=== PATIENT | male | born 1970 | race Caucasian/White ===

== ENCOUNTER 2023-07-21 16:06 | Emergency (ER) | payer MEDICAID, SELFPAY ==
[2023-07-21 16:09] VITALS: BP 140/90; PULSE 80; RESP 20; TEMP 37.1; O2SAT 99
--- NOTE | 2023-07-21 16:24 | ED.SKABFB ---
HPI - Skin/Abscess/Foreign Bdy General Chief complaint: Unspecified Stated complaint: leg swelling Source: patient Mode of arrival: ambulatory Limitations: no limitations History of Present Illness HPI narrative: 52 history bipolar, PTSD right lower extremity DVT with PE, factor 5 Leiden heterozygous deficiency, left lower leg and foot swelling / cellulitis for which he received 3 courses of antibiotics. He had a venous Doppler of the left lower extremity which was negative DVT. He presents to the ER for -- swelling of left leg and the foot. no fever or chills. The left leg does not feel warm. MD complaint: other ( Left lower leg and foot swelling) Onset (ago): month(s) ( for 1 month) Tetanus up to date: yes Location: LLE Quality: aching Pain Consistency: constant Relieving factors: none Exacerbating factors: none Context: none Associated symptoms: denies other symptoms Treatments prior to arrival: none Related Data Home Medications Medication Instructions Recorded Confirmed bupropion HCl 150 mg tablet,12 hr 150 mg PO DAILY 07/21/23 07/21/23 sustained-release cephalexin 500 mg capsule 500 mg PO TID 07/21/23 07/21/23 clonazepam 1 mg tablet 1 mg PO BID PRN Anxiety 07/21/23 07/21/23 lamotrigine 25 mg tablet 25 mg PO DAILY 07/21/23 07/21/23 olanzapine 10 mg tablet 10 mg PO DAILY 07/21/23 07/21/23 trazodone 100 mg tablet 100 mg PO HS 07/21/23 07/21/23 Review of Systems Review of Systems: All systems reviewed & are unremarkable except as noted in HPI and below Constitutional: Constitutional: Reports as per HPI and Reports no additional constitutional complaints Eyes: Eyes: Reports as per HPI and Reports no additional eye complaints ENT: Reports system reviewed and no additional complaints, except as documented and Reports as per HPI Cardiovascular: Cardiovascular: Reports as per HPI and Reports no additional cardiovascular complaints Respiratory: Respiratory: Reports as per HPI and Reports no additional respiratory complaints Gastrointestinal: Gastrointestinal: Reports as per HPI and Reports no additional gastrointestinal complaints Genitourinary: Genitourinary: Reports no additional male genitourinary complaints and Reports as per HPI Musculoskeletal: Musculoskeletal: Reports no additional musculoskeletal complaints and Reports as per HPI Integumentary/Breasts: Skin/Breast: Reports system reviewed and no additional complaints, except as docu and Reports as per HPI Comments: left lower leg and foot swelling with minimal erythema. Neurologic: Reports system reviewed and no additional complaints, except as documented and Reports as per HPI Psychiatric: Psychiatric: Reports no additional psychiatric complaints and Reports as per HPI Endocrine: Endocrine: Reports no additional endocrine complaints and Reports as per HPI Hematologic/Lymphatic: Hematologic/Lymphatic: Reports no additional hematologic/lymphatic complaints and Reports as per HPI Allergic/Immunologic: Allergic/Immunologic: Reports no additional allergic/immunologic complaints and Reports as per HPI [facility] Past Medical History Medical History (Updated 07/21/23 @ 17:42 by Jay Srivastava MD) Bipolar 1 disorder DVT (deep venous thrombosis) Factor 5 Leiden mutation, heterozygous PE (physical exam), annual PTSD (post-traumatic stress disorder) Exam Narrative: afebrile. Const: General: healthy appearing and no acute distress Nutritional Appearance: well nourished Orientation/consciousness: patient oriented x3 Limitations: no limitations HENMT: Head: normal to inspection Ears: external ears normal Face/Nose/Sinus: Normal external nose present Face and sinus: normal facial exam Mouth: Yes Normal oral and palatal mucosa present Throat: posterior oropharynx normal Eyes: Conjunctivae: conjunctivae normal Pupils: Equal, round and reactive pupils present EOM: EOMs intact bilaterally Direct Ophthalmoscopy: no photophobia Neck:
[2023-07-21 17:09] LABS: Basophils Absolute Auto 0.06 K/mm3 (0.00-0.10); Basophils Percent Auto 0.8 % (0.0-1.0); Eosinophils Absolute Auto 0.51 K/mm3 (0.02-0.50); Eosinophils Percent Auto 6.4 % (1.0-6.0); Hematocrit 44.7 % (40.0-54.0); Hemoglobin 14.8 g/dL (14.0-18.0); Immature Granulocyte Absolute 0.04 K/mm3 (0.00-0.00); Immature Granulocyte Percent A 0.5 % (0.0-0.0); Lymphocytes Percent Auto 22.7 % (18.0-42.0); Mean Corpuscular HGB Conc 33.1 g/dL (32.0-36.0); Mean Corpuscular Hemoglobin 28.8 pg (27.0-31.0); Mean Corpuscular Volume 87.1 fL (78.0-102.0); Mean Platelet Volume 9.6 fl (8.7-11.0); Monocytes Percent Auto 7.6 % (2.0-11.0); Neutrophils Absolute Auto 4.9 K/mm3 (1.7-7.2); Platelet Count Result 252 K/mm3 (150-420); Red Blood Count 5.13 M/mm3 (4.70-6.10); Red Cell Distribution Width 13.8 % (11.6-14.4); White Blood Count 7.9 K/mm3 (4.8-10.8)
[2023-07-21 17:22] LABS: D Dimer 0.21 mg/L (0.19-0.50)
[2023-07-21 17:31] LABS: Alanine Aminotransferase 18 U/L (16-63); Albumin Level 3.9 g/dL (3.4-5.0); Alkaline Phosphatase 70 U/L (46-116); Anion Gap 9 mmol/L (8-16); Aspartate Amino Transferase 18 U/L (15-37); Bilirubin,Total 0.3 mg/dL (0.00-1.00); Blood Urea Nitrogen 12 mg/dL (7-18); Calcium 8.3 mg/dL (8.5-10.1); Carbon Dioxide 27 mmol/L (21-32); Chloride 105 mmol/L (98-108); Estimated CRCL calculation 70 ml/min; Estimated Glomerular Filt Rate > 60; Glucose 107 mg/dL (70-99); NT Pro B Type Natriuretic Pept 13 pg/mL (0-125); Osmolality Calculated 291 mOsm/kg (285-295); Potassium 3.8 mmol/L (3.5-5.1); Sodium 141 mmol/L (136-145); Thyroid Stimulating Hormone 1.25 uIU/mL (0.36-3.74); Total Protein 6.7 g/dL (6.4-8.2)
[2023-07-21 17:53] VITALS: BP 130/88; PULSE 78; RESP 20; TEMP 36.6; O2SAT 98
== END 2023-07-21 17:55 | disposition home or self-care (01) ==
PROVIDERS: Emergency Provider Internal Medicine Critical Care Medicine; PCP Family Medicine
DX: I89.0 Lymphedema, not elsewhere classified (principal); Z86.718 Personal history of other venous thrombosis and embolism; Z79.899 Other long term (current) drug therapy
CPT/HCPCS: 36415; 80053; 83880; 84443; 85025; 85380; 99283

== ENCOUNTER 2023-11-05 09:01 | Outpatient (CLI) | payer OTHER, SELFPAY | END 2023-11-05 09:02 | disposition home or self-care (01) | LOC: CHSAUDIO 09:04 | PROVIDERS: PCP Physician Assistant; Visit Provider Physician Assistant | DX: H93.12 Tinnitus, left ear (principal); H90.3 Sensorineural hearing loss, bilateral | CPT/HCPCS: 92557; 92567 ==

== ENCOUNTER 2024-08-04 06:13 | Emergency (ER) | payer OTHER, SELFPAY ==
[2024-08-04 06:15] VITALS: BP 136/90; PULSE 70; RESP 18; TEMP 35.9; O2SAT 96
[2024-08-04] MEDS: LIDOCAINE HCL 1% LOCAL INJ 10 ML VIAL 5 ML INFILTRATE (06:30)
[2024-08-04] MEDS: TETANUS,DIPHTHERIA,AC PERTUSSIS ADULT 0.5 ML (ADACEL) IM (06:43)
--- NOTE | 2024-08-04 06:43 | ED.GENADULT ---
HPI - General Adult General Chief complaint: Wound/Laceration Stated complaint: wound Time Seen by Provider: 08/04/24 06:16 Source: patient Mode of arrival: ambulatory Limitations: no limitations History of Present Illness HPI narrative: 53-year-old white male tripped in his bedroom and hit his chin on his nightstand just before coming to the emergency department. He had no loss of consciousness. He lacerated his chin and bruised his lip. Says his bottom teeth are little bit loose otherwise he has no other injury. Otherwise he has been eating drinking stooling and voiding fine without fever cough runny nose sore throat problems walking talking seeing or hearing other injuries or swelling lumps or bumps dizziness or lightheadedness or other pain weakness or numbness or paresthesias. Denies any other complaints Related Data Home Medications Medication Instructions Recorded Confirmed clonazepam 1 mg tablet 1 mg PO BID PRN Anxiety 07/21/23 08/04/24 lamotrigine 25 mg tablet 25 mg PO DAILY 07/21/23 08/04/24 trazodone 100 mg tablet 100 mg PO HS 07/21/23 08/04/24 bupropion HCl 300 mg 24 hr tablet, 300 mg PO DAILY 08/04/24 08/04/24 extended release Allergies Allergy/AdvReac Type Severity Reaction Status Date / Time No Known Allergies Allergy Verified 08/04/24 06:31 Review of Systems Review of Systems: All systems reviewed & are unremarkable except as noted in HPI and below PMFSH Past Medical History Medical History (Updated 08/04/24 @ 06:51 by Bipin High MD) Bipolar 1 disorder DVT (deep venous thrombosis) Factor 5 Leiden mutation, heterozygous PE (physical exam), annual PTSD (post-traumatic stress disorder) Exam Narrative: White male patient with no apparent distress.? Head normocephalic except for a 1 cm laceration under his chin in his morgan and some bruising on the inside of his lower lip. Lower teeth are just a little loose with regards to his central incisors. His bite is normal..? Eyes conjunctiva pink sclera nonicteric.? Extraocular movements are intact.? Ears externally normal.? TMs are normal. Oropharynx is clear with moist mucous membranes without exudates.? Neck is supple nontender no lymphadenopathy.? Back is nontender.? Lungs are clear.? Heart is regular rate and rhythm without murmurs gallops or rubs.? Chest wall nontender. Abdomen is soft and nontender no hepatosplenomegaly or masses no CVA tenderness no abdominal bruits.? Extremities no cyanosis clubbing or edema.? Skin is warm and dry without rashes or lesions.? Neurological patient is alert and oriented x4.? Motor and sensory grossly intact.? Gait is normal. Course Vital Signs Vital signs: Vital Signs Temperature 35.9 C L 08/04/24 06:15 Pulse Rate 70 08/04/24 06:15 Respiratory Rate 18 08/04/24 06:15 Blood Pressure 136/90 08/04/24 06:15 Pulse Oximetry 96 08/04/24 06:15 Oxygen Delivery Room Air 08/04/24 06:15 Temperature 35.9 C L 08/04/24 06:15 Pulse Rate 70 08/04/24 06:15 Respiratory Rate 18 08/04/24 06:15 Blood Pressure 136/90 08/04/24 06:15 Pulse Oximetry 96 08/04/24 06:15 Oxygen Delivery Room Air 08/04/24 06:15 Medical Decision Making [facility] Narrative Medical decision making narrative: ? Patient placed in room: Room 7 ? History and physical was performed. Independent Historian: patient External Source Review: Differential Dx includes but not limited to: laceration contusion Medications were Reviewed: Home meds reviewed. Medications given: 1% lidocaine . Tdap given silver nitrate stick used to cauterize 1 small dot of bleeding next to his wound. Patient tolerated procedure well Location: ____Chin Pre-Procedure Diagnosis: Laceration of chin Post-Procedure Diagnosis: Repaired Laceration Informed consent was obtained before procedure started. PROCEDURE: The appropriate timeout was taken. The area was prepped and draped in the usual
== END 2024-08-04 07:20 | disposition home or self-care (01) ==
PROVIDERS: Emergency Provider Emergency Medicine; PCP Physician Assistant
DX: S01.81XA Laceration without foreign body of other part of head, initial encounter (principal); Z79.899 Other long term (current) drug therapy; Z23 Encounter for immunization; W01.190A Fall on same level from slipping, tripping and stumbling with subsequent striking against furniture, initial encounter; Y92.003 Bedroom of unspecified non-institutional (private) residence as the place of occurrence of the external cause
CPT/HCPCS: 12011; 90471; 90715; 99282